=== PATIENT | male | born 1930 | race Caucasian/White ===

== ENCOUNTER 2017-01-28 11:45 | Emergency (ER) | payer MEDICARE ==
--- NOTE | 2017-01-28 12:38 | Emergency Department Record ---
History of Present Illness - General Chief complaint: GI Bleed Stated complaint: BLOOD IN STOOL Source: Patient, Family (son and he is caregiver.), RN notes reviewed Mode of Arrival: Wheelchair - History of Present Illness Initial comments: rectal bleeding and worse in the last few days and he is on brylinta for atrial fibrillation. family is Marii and he is talking an 81 mg aspirin. PMH dementia and CHF, terminal ,pacemaker. atrial fibrillation. Heart cath done 2 weeks ago, syncope one week ago. MD complaint: Blood on toilet paper Onset/Timin -: Hour(s) Quality: Painless Improves with: None Worsens with: None Context: Hemorrhoids Associated Symptoms: Denies other symptoms Treatments Prior to Arrival: None - Related Data Home Medications Medication Instructions Recorded Confirmed Last Taken Aspirin 81 mg PO DAILY 01/28/17 01/28/17 01/27/17 Carvedilol [Coreg] 3.125 mg PO BID 01/28/17 01/28/17 01/27/17 Cholecalciferol (Vitamin D3) 2,000 unit PO DAILY 01/28/17 01/28/17 01/27/17 [Vitamin D3] Cyanocobalamin/Cobamamide [Vitamin 1 tab PO DAILY 01/28/17 01/28/17 01/27/17 B-12 5,000 Mcg Tab Sl] Famotidine [Pepcid] 20 mg PO DAILY 01/28/17 01/28/17 01/27/17 Furosemide [Lasix] 20 mg PO DAILY 01/28/17 01/28/17 01/27/17 Lisinopril [Zestril] 5 mg PO DAILY 01/28/17 01/28/17 01/27/17 Metoprolol Succinate [Toprol Xl] 25 mg PO DAILY 01/28/17 01/28/17 01/27/17 Multivitamin with Minerals [Icaps 1 each PO DAILY 01/28/17 01/28/17 01/27/17 Plus] Potassium Chloride [Klor-Con 10 meq PO DAILY 01/28/17 01/28/17 01/27/17 Sprinkle] Ticagrelor [Brilinta] 90 mg PO DAILY 01/28/17 01/28/17 01/27/17 Allergies Allergy/AdvReac Type Severity Reaction Status Date / Time No Known Drug Allergies Allergy Verified 01/28/17 11:55 Travel Screening - Travel/Exposure Within Last 30 Days Have you traveled within the last 30 days?: No - Travel/Exposure Within Last Year Have you traveled outside the [place] in the last year?: No - Additonal Travel Details Have you been exposed to anyone with a communicable illness?: No - Travel Symptoms Symptom Screening: None Review of Systems Reviewed: No additional complaints except as noted below Constitutional: Reports: As per HPI. Denies: Chills, Fever, Malaise, Night sweats, Weakness, Weight change Eyes: Reports: As per HPI. Denies: Eye discharge, Eye pain, Photophobia, Vision change ENT: Reports: As per HPI. Denies: Congestion, Dental pain, Ear pain, Epistaxis , Hearing loss, Throat pain Respiratory: Reports: As per HPI. Denies: Cough, Dyspnea, Hemoptysis, Stridor, Wheezes Cardiovascular: Reports: As per HPI. Denies: Arrhythmia, Chest pain, Dyspnea on exertion, Edema, Murmurs, Orthopnea, Palpitations, Paroxysmal nocturnal dyspnea, Rheumatic Fever, Syncope Endocrine: Reports: As per HPI. Denies: Fatigue, Heat or cold intolerance, Polydipsia, Polyuria Gastrointestinal: Reports: As per HPI. Denies: Abdominal pain, Constipation, Diarrhea, Hematemesis, Hematochezia, Melena, Nausea, Vomiting Genitourinary: Reports: As per HPI. Denies: Dysuria, Frequency, Hematuria, Incontinence, Retention, Testicular pain, Testicular mass, Urgency Musculoskeletal: Reports: As per HPI. Denies: Arthralgia, Back pain, Gout, Joint swelling, Myalgia, Neck pain Skin: Reports: As per HPI. Denies: Bruising, Change in color, Change in hair/ nails, Lesions, Pruritus, Rash Neurological: Reports: As per HPI. Denies: Abnormal gait, Confusion, Headache, Numbness, Paresthesias, Seizure, Tingling, Tremors, Vertigo, Weakness Psychiatric: Reports: As per HPI. Denies: Anxiety, Auditory hallucinations, Depression, Homicidal thoughts, Suicidal thoughts, Visual hallucinations Hematological/Lymphatic: Reports: As per HPI. Denies: Anemia, Blood Clots, Easy bleeding, Easy bruising, Swollen glands Past Medical History - SOCIAL HISTORY Smoking Status: Never smoker Alcohol Use: None Drug Use: None - RESPIRATORY Hx Respiratory Disorders: No - CARDIOVASCULAR Hx Cardio Disorders: Yes Hx CHF: Yes Hx Hypertension: Yes Hx Pacemaker/Defib: Yes - NEURO Hx Neuro Disorders: Yes Hx Dementia: Yes - GI Hx GI Disorders: Yes Hx GI Bleed: Yes - Hx Genitourinary Disorders: No - ENDOCRINE Hx Endocrine Disorders: No - MUSCULOSKELETAL Hx Musculoskeletal Disorders: No - PSYCH Hx Psych Problems: No - HEMATOLOGY/ONCOLOGY Hx Hematology/Oncology Disorders: No Family Medical History Any Significant Family History?: Yes Hx HTN: Father Physical Exam - General General Appearance: Alert, Oriented x3, Cooperative, No acute distress - Head Head exam: Normal inspection - Eye Eye exam: Normal appearance, PERRL Pupils: Normal accommodation - ENT ENT exam: Normal exam, Mucous membranes moist, Normal external ear exam, Normal orophraynx, TM's normal bilaterally Ear exam: Normal external inspection. negative: External canal tenderness Nasal Exam: Normal inspection. negative: Discharge, Sinus tenderness Mouth exam: Normal external inspection, Tongue normal Teeth exam: Normal inspection. negative: Dental caries Throat exam: Normal inspection. negative: Tonsillar erythema, Tonsillar exudate - Neck Neck exam: Normal inspection, Full ROM. negative: Tenderness - Respiratory Respiratory exam: Normal lung sounds bilaterally. negative: Respiratory distress - Cardiovascular Cardiovascular Exam: Regular rate, Normal rhythm, Normal heart sounds - GI/Abdominal GI/Abdominal exam: Soft, Normal bowel sounds. negative: Tenderness - Rectal Rectal exam: Hemorrhoids (bleeding from a hemorrhoid tag , rectal exam has brown loose stool no masses), Other - exam: Deferred - Extremities Extremities exam: Normal inspection, Full ROM, Normal capillary refill. negative: Tenderness - Back Back exam: Reports: Normal inspection, Full ROM. Denies: Muscle spasm, Rash noted, Tenderness - Neurological Neurological exam: Alert, Normal gait, Oriented X3, Reflexes normal - Psychiatric Psychiatric exam: Normal affect, Normal mood - Skin Skin exam: Dry, Intact, Normal color, Warm Course Vital Signs 01/28/17 11:56 Temperature 97.6 F Pulse Rate 70 Respiratory 18 Rate Blood Pressure 119/78 Pulse Ox 97 Medical Decision Making - Lab Data Result diagrams: 01/28/17 13:30 01/28/17 13:30 Disposition Clinical Impression: Bleeding external hemorrhoids Disposition: Home, Self-Care Condition: (1) Good Instructions: Hemorrhoids (ED) Additional Instructions: follow up with Dr. Mcgill in 4 days stop asa and brilinta for one week and than restart return to ED if more bleeding use preparation H twice a day Forms: Patient Portal Access Time of Disposition: 15:11 Quality - Quality Measures Quality Measures: N/A - Blood Pressure Screening Does Patient Have Any of the Following: No Blood Pressure Classification: Normal BP Reading Systolic Measurement: 119 Diastolic Measurement: 78 Screening for High Blood Pressure: < Normal BP, F/U Not Required > [[id number]]
[2017-01-28 13:42] LABS: BASO % 0.2 % (0-6); EOS % 2.1 % (0-6); GRAN % 61.8 % (47-80); HEMATOCRIT 45.6 % (42.0-52.0); HEMOGLOBIN 15.4 gm/dl (14.0-18.0); LYMPH % 24.4 % (16-45); MEAN CELL VOLUME 93.1 fl (81-97); MEAN CORPUSCULAR HEMOGLOBIN 31.4 pg (27-33); MEAN CORPUSCULAR HGB CONC 33.8 g/dl (32-36); MEAN PLATELET VOLUME 9.9 fl (7.4-10.4); MONO % 11.5 % (0-9); PLATELET COUNT 195 K/uL (130-400); RED CELL DISTRIBUTION WIDTH 14.7 % (11.5-14.5)
[2017-01-28 13:53] LABS: ANION GAP 7.7 (7-16); BLOOD UREA NITROGEN 13 mg/dL (9-20); CARBON DIOXIDE 27.3 mmol/L (22-30); EST GLOMERULAR FILTRATION RATE > 60 ml/min; GLUCOSE,RANDOM 97 mg/dL (70-110)
[2017-01-28 13:56] LABS: INR 1.03; PARTIAL THROMBOPLASTIN TIME 28.6 SECONDS (24.5-39.1); PROTHROMBIN TIME (PATIENT) 11.1 SECONDS (9.5-12.1)
== END 2017-01-28 15:20 | disposition home or self-care (01) ==
LOC: ER 11:45
DX: K64.8 Other hemorrhoids (principal); I48.91 Unspecified atrial fibrillation; I50.9 Heart failure, unspecified; F03.90 Unspecified dementia, unspecified severity, without behavioral disturbance, psychotic disturbance, mood disturbance, and anxiety
CPT/HCPCS: 80048; 82272; 85025; 85610; 85730; 99283